=== PATIENT | female | born 1955 | race Caucasian/White ===

== ENCOUNTER 2016-08-19 11:51 | Emergency (ER) | payer MEDICARE, BC ==
[2016-08-19] MEDS ORDERED: Clindamycin Phosphate 900 MG in Sodium Chloride 0.9% 100 ML IV ONE (12:36)
--- NOTE | 2016-08-19 12:42 | EDM.PDOC ---
ED HPI Trauma - General Chief Complaint: Lower Extremity Injury/Pain Stated Complaint: LEFT LEG Time Seen by Provider: 08/19/16 12:25 Source: Reports: Patient History Limitations: Reports: Other (Old record not available) - History of Present Illness INITIAL COMMENTS - FREE TEXT/NARRATIVE: 60 yo female here with concern about worsening infection in her L foot. Is on cephalexin for a week now per a contract analyst in [place] for an infected great toe. Now redness extends to the ankle with shooting pains. Says she is not diabetic. Next appt with podiatry in 9 days. Also had recent cardiac surgery and L fem/ pop bypass also both in [place]. Saying with her daughter locally temporarily. Symptom Onset Date: 08/18/16 Occurred When: yesterday Occurred Where: home Method of Injury: other (No new injury. Had a toenail partially removed and a FB removed also at that time per podiatry about a week ago. ) Severity: moderate Pain/Injury Location: Reports: lower extremity, left Allergies/ADRs: Allergies No Known Allergies Allergy (Verified 08/19/16 12:13) Home Medications: Ambulatory Orders Aspirin 81 mg PO DAILY 08/19/16 [Confirmed 08/19/16] Carvedilol [Coreg] 12.5 mg PO BID 08/19/16 [Confirmed 08/19/16] Cephalexin 500 mg PO TID 08/19/16 [Confirmed 08/19/16] Citalopram [Celexa] 20 mg PO DAILY 08/19/16 [Confirmed 08/19/16] Clindamycin HCl 300 mg PO TID #15 capsule 08/19/16 Clopidogrel [Plavix] 75 mg PO DAILY 08/19/16 [Confirmed 08/19/16] Docusate Sodium [Colace] 100 mg PO BID 08/19/16 [Confirmed 08/19/16] Gabapentin [Neurontin] 300 mg PO TID 08/19/16 [Confirmed 08/19/16] Hydrochlorothiazide 12.5 mg PO DAILY 08/19/16 [Confirmed 08/19/16] Telmisartan [Micardis] 80 mg PO DAILY 08/19/16 [Confirmed 08/19/16] amLODIPine [Norvasc] 10 mg PO DAILY 08/19/16 [Confirmed 08/19/16] atorvaSTATin Calcium [Atorvastatin Calcium] 80 mg PO DAILY 08/19/16 [Confirmed 08/19/16] oxyCODONE 5 mg PO Q4H PRN 08/19/16 [Confirmed 08/19/16] Review of Systems - Review of Systems Review Of Systems: See Below Constitutional: Reports: no symptoms Respiratory: Reports: No Symptoms Cardiovascular: Reports: no symptoms GI/Abdominal: Reports: No symptoms Skin: Reports: erythema (L foot and great toe), wound, change in color Neurological: Reports: Other (Shooting pains now from ankle to foot on left.) Trauma Exam - Physical Exam Exam: See Below Exam Limited By: No limitations General Appearance: Reports: alert, WD/WN, no apparent distress, obese, other ( Looks older than her stated age.) Head: Reports: atraumatic, normocephalic Eyes: bilateral eye: normal inspection Ears: Reports: normal external exam, normal canal, hearing grossly normal Nose: Reports: normal inspection, normal mucousa, no blood Throat/Mouth: Reports: Normal inspection, Normal lips, Normal oropharynx, Normal voice, No airway compromise Neck: Reports: non-tender Respiratory Exam: Reports: no respiratory distress, lungs clear, normal breath sounds, no accessory muscle use Cardiovascular: Reports: regular rate, rhythm Extremities: Reports: other (No calf pain, negative Abbey's) Skin: Reports: Warm/dry, Other (Slight erythema of the left foot dorsally. No drainage. ) Course - Vital Signs Text/Narrative:: Clindamycin 900 mg IV, percocet 1 po Last Recorded V/S: Last Vital Signs Temp 36.5 C 08/19/16 12:08 Pulse 63 08/19/16 12:08 Resp 18 08/19/16 12:08 BP 173/59 H 08/19/16 12:08 Pulse Ox 100 08/19/16 12:08 - Orders/Labs/Meds Orders: Active Orders 24 hr Category Date Time Status CULTURE BLOOD [BC] Stat Lab 08/19/16 12:50 Received Acetaminophen/oxyCODONE [Percocet 325-5 MG] Med 08/19/16 13:23 Once 1 tab PO ONETIME ONE Sodium Chloride 0.9% [Normal Saline] 250 ml Med 08/19/16 13:00 Active IV ASDIRECTED Medication Orders Sodium Chloride (Normal Saline) 250 mls @ 100 mls/hr IV ASDIRECTED DOMI Last Admin: 08/19/16 13:17 Dose: 100 mls/hr Labs: Laboratory Tests 08/19/16 08/19/16 08/19/16 Range/Units 12:50 12:50 12:50 WBC 7.6 (4.5-12.0) X10-3/uL RBC 3.75 (3.23-5.20) x10(6)uL Hgb 11.4 L (11.5-15.5) g/dL Hct 33.1 (30.0-51.3) % MCV 88.1 (80-96) fL MCH 30.5 (27.7-33.6) pg MCHC 34.6 (32.2-35.4) g/dL RDW 13.2 (11.5-15.5) % Plt Count 238 (125-369) X10(3)uL Sodium 140 (135-145) mmol/L Potassium 4.1 (3.5-5.3) mmol/L Chloride 107 (100-110) mmol/L Carbon Dioxide 23 (23-29) mmol/L BUN 24 H (8-23) mg/dL Creatinine 1.0 (0.6-1.3) mg/dL Est Cr Clr Drug Dosing 53.83 mL/min Estimated GFR (MDRD) 57 L (>60) BUN/Creatinine Ratio 24.0 H (9-20) Glucose 101 (80-116) mg/dL Calcium 8.8 (8.6-10.2) mg/dL C-Reactive Protein 1.0 (0.0-1.0) mg/dL Meds: Medications Generic Name Dose Route Start Last Admin Trade Name Freq PRN Reason Stop Dose Admin Sodium Chloride 250 mls @ 100 mls/hr 08/19/16 13:00 08/19/16 13:17 Normal Saline IV 100 mls/hr ASDIRECTED DOMI Administration Discontinued Medications Generic Name Dose Route Start Last Admin Trade Name Freq PRN Reason Stop Dose Admin Clindamycin Phosphate 900 mg/ 106 mls @ 200 mls/hr 08/19/16 12:36 08/19/16 13 :17 Sodium Chloride IV 08/19/16 13:07 200 mls/hr ONETIME ONE Administration Departure - Departure Time of Disposition: 13:45 Disposition: Home, Self-Care 01 Condition: fair Clinical Impression: Left foot infection Prescriptions: Clindamycin HCl 300 mg PO TID #15 capsule Referrals: PCP,None [Primary Care Provider] - Forms: ED Department Discharge Care Plan Goals: Continue present meds. Add clindamycin every 8 hrs. F/U with your contract analyst for recheck cassy, call for an appt. Keep the left foot elevated above your heart. - My Orders Last 24 Hours: My Active Orders 08/19/16 12:50 CULTURE BLOOD [BC] Stat 08/19/16 13:00 Sodium Chloride 0.9% [Normal Saline] 250 ml IV ASDIRECTED 08/19/16 13:23 Acetaminophen/oxyCODONE [Percocet 325-5 MG] 1 tab PO ONETIME ONE - Assessment/Plan Last 24 Hours: My Active Orders 08/19/16 12:50 CULTURE BLOOD [BC] Stat 08/19/16 13:00 Sodium Chloride 0.9% [Normal Saline] 250 ml IV ASDIRECTED 08/19/16 13:23 Acetaminophen/oxyCODONE [Percocet 325-5 MG] 1 tab PO ONETIME ONE
[2016-08-19] MEDS ORDERED: Sodium Chloride 0.9% 250 ML IV SCH (13:00)
[2016-08-19] MEDS ORDERED: Acetaminophen/oxyCODONE 325-5 MG Tab PO ONE (13:23)
[2016-08-19 16:41] VITALS: BP 165/79
== END 2016-08-19 15:01 | disposition home or self-care (01) ==
LOC: FB.ED 11:51
DX: L08.9 Local infection of the skin and subcutaneous tissue, unspecified (principal); Z79.82 Long term (current) use of aspirin; Z79.899 Other long term (current) drug therapy
CPT/HCPCS: 36415; 80048; 85027; 86140; 87040; 96365; 99283; A9270; J7030; J7050; 99284; S0077

== ENCOUNTER 2019-10-13 12:10 | Emergency (ER) | payer MEDICARE, BC ==
[2019-10-13] MEDS ORDERED: Sodium Chloride 0.9% 10 ML Syringe FLUSH PRN (12:27)
[2019-10-13 12:31] VITALS: BP 137/74; PULSE 97
--- NOTE | 2019-10-13 12:50 | EDM.PDOC ---
ED HPI GENERAL MEDICAL PROBLEM - General Chief Complaint: Abdominal Pain Stated Complaint: WEAKNESS Time Seen by Provider: 10/13/19 12:36 Source of Information: Reports: Patient History Limitations: Reports: No Limitations - History of Present Illness INITIAL COMMENTS - FREE TEXT/NARRATIVE: Patient resides at [facility]. She presents to the ED today with generalized weakness since 0200 after being given Oxycodone, which is not a new medication. 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 Patient is s/p colectomy @[facility] @3 weeks ago due to a mass. She complains of intermittent LUQ abdominal pain and nausea x 1 week , she did have an episode of vomiting yesterday. PMHx includes CHF, CAD w/ stents, PVD, HTN, and Depression. Onset Date: 10/13/19 Onset Time: 02:00 - Related Data Allergies Allergy/AdvReac Type Severity Reaction Status Date / Time No Known Allergies Allergy Verified 10/13/19 12:52 Home Meds: Home Meds Aspirin 81 mg PO DAILY 08/19/16 [History] Citalopram [Celexa] 40 mg PO DAILY 08/19/16 [History] Clopidogrel [Plavix] 75 mg PO DAILY 08/19/16 [History] Gabapentin [Neurontin] 900 mg PO BEDTIME 08/19/16 [History] Telmisartan [Micardis] 80 mg PO DAILY 08/19/16 [History] oxyCODONE 10 mg PO Q4H PRN 08/19/16 [History] Acetaminophen [Pain Relief] 650 mg PO Q4H PRN 10/13/19 [History] Alum Hydrox/Mag Hydrox/Simeth [Maalox Advanced] 10 ml PO Q4H PRN 10/13/19 [ History] Cholecalciferol (Vitamin D3) [Vitamin D3] 1,000 units PO DAILY 10/13/19 [History ] Colchicine 0.6 mg PO DAILY 10/13/19 [History] Furosemide 40 mg PO DAILY 10/13/19 [History] Furosemide 80 mg PO DAILY 10/13/19 [History] Gabapentin [Neurontin] 300 mg PO DAILY 10/13/19 [History] Gabapentin [Neurontin] 600 mg PO DAILY 10/13/19 [History] Mirtazapine [Remeron] 15 mg PO BEDTIME 10/13/19 [History] Multivit-Min/FA/Lycopen/Lutein [Sentry Senior Tablet] 1 tab PO DAILY 10/13/19 [ History] NIFEdipine [Nifedipine ER] 90 mg PO DAILY 10/13/19 [History] Ondansetron [Zofran ODT] 4 mg PO Q6H PRN 10/13/19 [History] Potassium Chloride 20 meq PO BID 10/13/19 [History] Rosuvastatin [Crestor] 10 mg PO BEDTIME 10/13/19 [History] Sennosides/Docusate Sodium [Senna-Docusate Sodium Tablet] 2 tab PO BID PRN 10/12 [History] carvediloL [Coreg] 25 mg PO BID 10/13/19 [History] hydrALAZINE [Apresoline] 25 mg PO BID 10/13/19 [History] polyethylene glycoL 3350 [MiraLAX] 17 gm PO DAILY PRN 10/13/19 [History] Past Medical History Cardiovascular History: Reports: CAD, High Cholesterol, Hypertension, NC, Stents , Other (See Below) (PVD) Gastrointestinal History: Reports: None GAS TESTER History: Reports: Musculoskeletal History: Reports: Back Pain, Chronic Neurological History: Reports: Neuropathy, Peripheral Psychiatric History: Reports: Depression Endocrine/Metabolic History: Reports: Obesity/BMI 30+ Dermatologic History: Reports: Other (See Below) Other Dermatologic History: sore to L gt toe - Infectious Disease History Infectious Disease History: Reports: Chicken Pox - Past Surgical History Cardiovascular Surgical History: Reports: Coronary Artery Stent, Other (See Below) Female Surgical History: Reports: Section, Other (See Below) Musculoskeletal Surgical History: Reports: Other (See Below) Social & Family History - Family History Family Medical History: Noncontributory - Tobacco Use Smoking Status *Q: Never Smoker - Caffeine Use Caffeine Use: Reports: Coffee - Recreational Drug Use Recreational Drug Use: No ED ROS GENERAL - Review of Systems Review Of Systems: Comprehensive ROS is negative, except as noted in HPI. ED EXAM, GENERAL - Physical Exam Exam: See Below Exam Limited By: No Limitations General Appearance: Alert, WD/WN, No Apparent Distress Eye Exam: Bilateral Eye: EOMI, PERRL Nose: Normal Inspection Throat/Mouth: No Airway Compromise Head: Atraumatic, Normocephalic Neck: Full Range of Motion Respiratory/Chest: No Respiratory Distress, Decreased Breath Sounds Cardiovascular: Regular Rate, Rhythm, No Murmur GI/Abdominal: Soft, Tender (LUQ), Abnormal Bowel Sounds (hypoactive), Other ( Vertical incision CDI) Back Exam: Full Range of Motion Extremities: Pedal Edema Neurological: Alert, CN II-XII Intact, Normal Cognition, No Motor/Sensory Deficits, Other (GCS=15, NIHSS=0) Psychiatric: Normal Affect, Normal Mood Skin Exam: Warm, Dry, Intact EKG INTERPRETATION EKG Date: 10/13/19 Time: 12:15 Rhythm: NSR Rate (Beats/Min): 93 [place]: Normal P-Wave: Present QRS: RBBB ST-T: Normal Comparison: NA - No Prior EKG Course - Vital Signs Last Recorded V/S: Last Vital Signs Temp 36.7 C 10/13/19 12:25 Pulse 97 10/13/19 12:25 Resp 16 10/13/19 12:25 BP 137/74 10/13/19 12:25 Pulse Ox 93 L 10/13/19 12:25 - Orders/Labs/Meds Orders: Active Orders 24 hr Category Date Time Status EKG Documentation Completion [RC] ASDIRECTED Care 10/13/19 12:24 Active Abdomen Pelvis w Cont [CT] Stat Exams 10/13/19 13:34 Taken CXR [Chest 1V Frontal] [CR] Stat Exams 10/13/19 12:49 Taken CULTURE BLOOD [BC] Urgent Lab 10/13/19 12:55 Received CULTURE BLOOD [BC] Urgent Lab 10/13/19 13:00 Received Piperacillin/Tazobactam [Zosyn] 3.375 gm Med 10/13/19 15:17 Ordered Sodium Chloride 0.9% [Normal Saline] 50 ml IV .ONCE Sodium Chloride 0.9% @ 75 MLS/HR(1000ml) Med 10/13/19 15:45 Ordered Sodium Chloride 0.9% [Normal Saline] 1,000 ml IV ASDIRECTED Sodium Chloride 0.9% [Saline Flush] Med 10/13/19 12:27 Active 10 ml FLUSH ASDIRECTED PRN Blood Culture x2 Reflex Set [OM.PC] Urgent Oth 10/13/19 12:34 Ordered Saline Lock Insert [OM.PC] Routine Oth 10/13/19 12:27 Ordered EKG 12 Lead [EK] Stat Ther 10/13/19 12:24 Ordered Medication Orders Piperacillin Sod/Tazobactam (Sod 3.375 gm/ Sodium Chloride) 50 mls @ 100 mls/ hr IV .ONCE ONE Stop: 10/13/19 15:46 Last Admin: 10/13/19 15:35 Dose: 100 mls/hr Sodium Chloride (Saline Flush) 10 ml FLUSH ASDIRECTED PRN PRN Reason: Keep Vein Open Labs: Laboratory Tests 10/13/19 10/13/19 10/13/19 Range/Units 12:04 13:00 13:00 WBC 30.3 H* (4.5-12.0) X10-3/uL RBC 4.70 (3.23-5.20) x10(6)uL Hgb 13.5 (11.5-15.5) g/dL Hct 40.6 (30.0-51.3) % MCV 86.4 (80-96) fL MCH 28.6 (27.7-33.6) pg MCHC 33.1 (32.2-35.4) g/dL RDW 12.8 (11.5-15.5) % Plt Count 490 H (125-369) X10(3)uL MPV 8.6 (7.4-10.4) fL Add Manual Diff Yes Neutrophils % (Manual) 76 (46-82) % Band Neutrophils % 10 H (0-6) % Lymphocytes % (Manual) 10 L (13-37) % Monocytes % (Manual) 4 (4-12) % Toxic Granulation Moderate H (NOT SEEN) Macrocytosis Few PT (9.0-11.1) sec INR (1.00-1.24) APTT (24.4-33.2) SECONDS D-Dimer, Quantitative (0.0-0.59) mg/LFEU POC VBG pH 7.48 H (7.31-7.41) POC VBG pCO2 44.9 (41-51) mmHG POC VBG HCO3 33.7 H (23-28) mmol/L POC VBG Total CO2 35 H (24-29) mmol/L POC VBG Base Excess 10 H (-2-3) mmol/L Sodium (135-145) mmol/L Potassium (3.5-5.3) mmol/L Chloride (100-110) mmol/L Carbon Dioxide (21-32) mmol/L BUN (7-18) mg/dL Creatinine (0.55-1.02) mg/dL Est Cr Clr Drug Dosing Estimated GFR (MDRD) (>60) BUN/Creatinine Ratio (9-20) Glucose (80-116) mg/dL Lactic Acid (0.4-2.0) mmol/L Calcium (8.6-10.2) mg/dL Magnesium (1.8-2.5) mg/dL Total Bilirubin (0.1-1.3) mg/dL AST (5-25) IU/L ALT (12-36) U/L Alkaline Phosphatase (56-112) IU/L Troponin I (4.0-60.3) pg/mL NT-Pro-B Natriuret Pep (<=125) pg/mL Total Protein (6.0-8.0) g/dL Albumin (3.2-4.6) g/dL Globulin g/dL Albumin/Globulin Ratio Lipase (73-393) U/L Urine Color Yellow (YELLOW) Urine Appearance Clear (CLEAR) Urine pH 6.0 (5.0-6.5) Ur Specific [place] 1.015 (1.010-1.025) Urine Protein Trace (NEGATIVE) mg/dL Urine Glucose (UA) Normal (NORMAL) mg/dL Urine Ketones Negative (NEGATIVE) mg/dL Urine Occult Blood Negative (NEGATIVE) Urine Nitrite Negative (NEGATIVE) Urine Bilirubin Negative (NEGATIVE) Urine Urobilinogen Normal (NEGATIVE) mg/dL Ur Leukocyte Esterase Negative (NEGATIVE) Urine RBC 0-5 (0-5) Urine WBC 0-5 (0-5) Ur Squamous Epith Cells Rare (NS,R,O) Urine Bacteria Rare H (NS) 10/13/19 10/13/19 10/13/19 Range/Units 13:00 13:00 13:00 WBC (4.5-12.0) X10-3/uL RBC (3.23-5.20) x10(6)uL Hgb (11.5-15.5) g/dL Hct (30.0-51.3) % MCV (80-96) fL MCH (27.7-33.6) pg MCHC (32.2-35.4) g/dL RDW (11.5-15.5) % Plt Count (125-369) X10(3)uL MPV (7.4-10.4) fL Add Manual Diff Neutrophils % (Manual) (46-82) % Band Neutrophils % (0-6) % Lymphocytes % (Manual) (13-37) % Monocytes % (Manual) (4-12) % Toxic Granulation (NOT SEEN) Macrocytosis PT 11.4 H (9.0-11.1) sec INR 1.06 (1.00-1.24) APTT 25.9 (24.4-33.2) SECONDS D-Dimer, Quantitative 11.08 H (0.0-0.59) mg/LFEU POC VBG pH (7.31-7.41) POC VBG pCO2 (41-51) mmHG POC VBG HCO3 (23-28) mmol/L POC VBG Total CO2 (24-29) mmol/L POC VBG Base Excess (-2-3) mmol/L Sodium 134 L (135-145) mmol/L Potassium 4.1 D (3.5-5.3) mmol/L Chloride 95 L (100-110) mmol/L Carbon Dioxide 34 H (21-32) mmol/L BUN 22 H D (7-18) mg/dL Creatinine 1.2 H (0.55-1.02) mg/dL Est Cr Clr Drug Dosing TNP Estimated GFR (MDRD) 45 L (>60) BUN/Creatinine Ratio 18.3 (9-20) Glucose 202 H (80-116) mg/dL Lactic Acid 1.2 (0.4-2.0) mmol/L Calcium 8.7 (8.6-10.2) mg/dL Magnesium 1.8 (1.8-2.5) mg/dL Total Bilirubin 0.6 (0.1-1.3) mg/dL AST 23 D (5-25) IU/L ALT 20 D (12-36) U/L Alkaline Phosphatase 123 H (56-112) IU/L Troponin I (4.0-60.3) pg/mL NT-Pro-B Natriuret Pep (<=125) pg/mL Total Protein 7.5 (6.0-8.0) g/dL Albumin 2.1 L (3.2-4.6) g/dL Globulin 5.4 g/dL Albumin/Globulin Ratio 0.4 Lipase (73-393) U/L Urine Color (YELLOW) Urine Appearance (CLEAR) Urine pH (5.0-6.5) Ur Specific [place] (1.010-1.025) Urine Protein (NEGATIVE) mg/dL Urine Glucose (UA) (NORMAL) mg/dL Urine Ketones (NEGATIVE) mg/dL Urine Occult Blood (NEGATIVE) Urine Nitrite (NEGATIVE) Urine Bilirubin (NEGATIVE) Urine Urobilinogen (NEGATIVE) mg/dL Ur Leukocyte Esterase (NEGATIVE) Urine RBC (0-5) Urine WBC (0-5) Ur Squamous Epith Cells (NS,R,O) Urine Bacteria (NS) 10/13/19 Range/Units 13:00 WBC (4.5-12.0) X10-3/uL RBC (3.23-5.20) x10(6)uL Hgb (11.5-15.5) g/dL Hct (30.0-51.3) % MCV (80-96) fL MCH (27.7-33.6) pg MCHC (32.2-35.4) g/dL RDW (11.5-15.5) % Plt Count (125-369) X10(3)uL MPV (7.4-10.4) fL Add Manual Diff Neutrophils % (Manual) (46-82) % Band Neutrophils % (0-6) % Lymphocytes % (Manual) (13-37) % Monocytes % (Manual) (4-12) % Toxic Granulation (NOT SEEN) Macrocytosis PT (9.0-11.1) sec INR (1.00-1.24) APTT (24.4-33.2) SECONDS D-Dimer, Quantitative (0.0-0.59) mg/LFEU POC VBG pH (7.31-7.41) POC VBG pCO2 (41-51) mmHG POC VBG HCO3 (23-28) mmol/L POC VBG Total CO2 (24-29) mmol/L POC VBG Base Excess (-2-3) mmol/L Sodium (135-145) mmol/L Potassium (3.5-5.3) mmol/L Chloride (100-110) mmol/L Carbon Dioxide (21-32) mmol/L BUN (7-18) mg/dL Creatinine (0.55-1.02) mg/dL Est Cr Clr Drug Dosing Estimated GFR (MDRD) (>60) BUN/Creatinine Ratio (9-20) Glucose (80-116) mg/dL Lactic Acid (0.4-2.0) mmol/L Calcium (8.6-10.2) mg/dL Magnesium (1.8-2.5) mg/dL Total Bilirubin (0.1-1.3) mg/dL AST (5-25) IU/L ALT (12-36) U/L Alkaline Phosphatase (56-112) IU/L Troponin I 7.8 (4.0-60.3) pg/mL NT-Pro-B Natriuret Pep 2566 H* (<=125) pg/mL Total Protein (6.0-8.0) g/dL Albumin (3.2-4.6) g/dL Globulin g/dL Albumin/Globulin Ratio Lipase 92 (73-393) U/L Urine Color (YELLOW) Urine Appearance (CLEAR) Urine pH (5.0-6.5) Ur Specific [place] (1.010-1.025) Urine Protein (NEGATIVE) mg/dL Urine Glucose (UA) (NORMAL) mg/dL Urine Ketones (NEGATIVE) mg/dL Urine Occult Blood (NEGATIVE) Urine Nitrite (NEGATIVE) Urine Bilirubin (NEGATIVE) Urine Urobilinogen (NEGATIVE) mg/dL Ur Leukocyte Esterase (NEGATIVE) Urine RBC (0-5) Urine WBC (0-5) Ur Squamous Epith Cells (NS,R,O) Urine Bacteria (NS) Meds: Medications Generic Name Dose Route Start Last Admin Trade Name Freq PRN Reason Stop Dose Admin Piperacillin Sod/Tazobactam 50 mls @ 100 mls/hr 10/13/19 15:17 10/13/19 15:35 Sod 3.375 gm/ Sodium Chloride IV 10/13/19 15:46 100 mls/hr .ONCE ONE Administration Sodium Chloride 10 ml 10/13/19 12:27 Saline Flush FLUSH ASDIRECTED PRN Keep Vein Open Discontinued Medications Generic Name Dose Route Start Last Admin Trade Name Freq PRN Reason Stop Dose Admin Sodium Chloride 500 mls @ 500 mls/hr 10/13/19 12:52 10/13/19 15:34 Normal Saline IV 10/13/19 13:51 500 mls/hr .BOLUS ONE Administration Iopamidol 100 ml 10/13/19 14:15 10/13/19 14:23 Isovue-370 (76%) IV 10/13/19 14:16 100 ml . DIRECTED ONE Administration - Radiology Interpretation Free Text/Narrative:: Patient Name: TRIXIE EARL Date of : 1955 Procedure: CT ABDOMEN PELVIS WITH CONTRAST Date of Service: 10/13/2019 EXAM: CT ABDOMEN PELVIS WITH CONTRAST INDICATION:ICD-10 R10.9 Abdominal pain ICD-10 D72.829 Leukocytosis abdominal pain, leukocytosis TECHNIQUE: CT imaging was performed through the abdomen and pelvis following IV contrast. COMPARISON(S): 10/02/2019 FINDINGS: Lung bases demonstrate subsegmental atelectasis at the left base. Clustered micronodules at the paramedian right middle lobe and inferior lingula with imaging characteristics typical of inflammatory pneumonitis. There is evidence of peripherally located branching air lucencies within the liver compatible with portal venous gas. There is perihepatic and perisplenic ascites which is new over the interim. Gallbladder, biliary system and pancreas unremarkable. Spleen is normal. Adrenal glands normal. Punctate nonobstructing stone upper pole left kidney. Atrophic right kidney, likely chronic. No hydronephrosis. Bladder unremarkable aside from air nondependently. New postoperative change of right hemicolectomy. Pancreas worrisome for pneumatosis involving segments of small bowel in the left abdomen. There is a focus of air within the distal SMV. Small bowel wall thickening possible in the left abdomen. No free air. No destructive osseous lesion or acute fracture. IMPRESSION: 1. Since C5 09/18/2019 examination, there has been a right hemicolectomy. There is new portal venous gas within the periphery of the liver and possible small bowel pneumatosis in the left abdomen. Pneumatosis can indicate small bowel ischemia but can also be seen with benign etiologies. Correlate with lactic acid and clinical impression. A small focus of air is noted within the distal SMV. 2. Clustered nodules at the inferior lingula and paramedian right middle lobe with imaging characteristics typical of infectious/inflammatory pneumonitis. 3. Mild perihepatic and perisplenic ascites, also seen at the left abdomen. 4. Sigmoid diverticulosis. Findings discussed with EBTTINA BERNABE on 10/13/2019 2:59 PM CDT Finalized by: Hugo Peralta DO on 10/13/2019 3:03 PM CDT EXAM: XRAY CHEST 1 VIEW INDICATION:ICD-10 R79.81 Low O2 saturation COMPARISON(S): 10/02/2019 FINDINGS/IMPRESSION: Aortic calcification. Chest is otherwise negative. Finalized by: Evelyne Sheppard MD on 10/13/2019 1:02 PM CDT - Re-Assessments/Exams Free Text/Narrative Re-Assessment/Exam: 10/13/19 15:36 20G IV started in left hand by ESTATE CONSERVATOR after multiple unsuccessful attempts. Dr. Dent ([facility] Surgeon) accepts patient for transfer, advises against empiric anticoagulation at this time. Departure - Departure Time of Disposition: 15:38 Disposition: DC/Tfer to [facility] 02 Condition: Fair Clinical Impression: Pneumatosis intestinalis, D-dimer, elevated Pneumonia Qualifiers: Pneumonia type: due to unspecified organism Laterality: bilateral Lung location : lower lobe of lung Qualified Code(s): J18.9 - Pneumonia, unspecified organism - Discharge Information *PRESCRIPTION DRUG MONITORING PROGRAM REVIEWED*: No *COPY OF PRESCRIPTION DRUG MONITORING REPORT IN PATIENT CHER: Not Applicable Referrals: Jann Benson MD [Primary Care Provider] - Forms: ED Department Discharge Sepsis Event Note - Evaluation Sepsis Screening Result: Possible Sepsis Risk - Focused Exam Vital Signs: Vital Signs Temp Pulse Resp BP Pulse Ox 10/13/19 12:25 36.7 C 97 16 137/74 93 L Date Exam was Performed: 10/13/19 Time Exam was Performed: 15:36 - My Orders Last 24 Hours: My Active Orders 10/13/19 12:24 EKG Documentation Completion [RC] ASDIRECTED EKG 12 Lead [EK] Stat 10/13/19 12:27 Sodium Chloride 0.9% [Saline Flush] 10 ml FLUSH ASDIRECTED PRN Saline Lock Insert [OM.PC] Routine 10/13/19 12:34 Blood Culture x2 Reflex Set [OM.PC] Urgent 10/13/19 12:49 CXR [Chest 1V Frontal] [CR] Stat 10/13/19 12:55 CULTURE BLOOD [BC] Urgent 10/13/19 13:00 CULTURE BLOOD [BC] Urgent 10/13/19 13:34 Abdomen Pelvis w Cont [CT] Stat 10/13/19 15:17 Piperacillin/Tazobactam [Zosyn] 3.375 gm Sodium Chloride 0.9% [Normal Saline] 50 ml IV .ONCE 10/13/19 15:45 Sodium Chloride 0.9% @ 75 MLS/HR(1000ml) Sodium Chloride 0.9% [Normal Saline] 1 ,000 ml IV ASDIRECTED - Assessment/Plan Last 24 Hours: My Active Orders 10/13/19 12:24 EKG Documentation Completion [RC] ASDIRECTED EKG 12 Lead [EK] Stat 10/13/19 12:27 Sodium Chloride 0.9% [Saline Flush] 10 ml FLUSH ASDIRECTED PRN Saline Lock Insert [OM.PC] Routine 10/13/19 12:34 Blood Culture x2 Reflex Set [OM.PC] Urgent 10/13/19 12:49 CXR [Chest 1V Frontal] [CR] Stat 10/13/19 12:55 CULTURE BLOOD [BC] Urgent 10/13/19 13:00 CULTURE BLOOD [BC] Urgent 10/13/19 13:34 Abdomen Pelvis w Cont [CT] Stat 10/13/19 15:17 Piperacillin/Tazobactam [Zosyn] 3.375 gm Sodium Chloride 0.9% [Normal Saline] 50 ml IV .ONCE 10/13/19 15:45 Sodium Chloride 0.9% @ 75 MLS/HR(1000ml) Sodium Chloride 0.9% [Normal Saline] 1 ,000 ml IV ASDIRECTED
[2019-10-13] MEDS ORDERED: Sodium Chloride 0.9% 500 ML IV ONE (12:52)
[2019-10-13] MEDS ORDERED: Iopamidol 755 Mg/ML 100 ML Bottle IV ONE (14:15)
--- NOTE | 2019-10-13 15:02 | PCM.SN.2 ---
- Free Text/Narrative Note: Was called to ER to start an IV on a patient who they have had multiple attempts to start an IV and attempts to draw blood. IV prep to left hand and attempted IV start and unable to thread IV, was able to draw 5 cc's of blood and gave to LAb. Multiple attempts to start an IV by myself and by Abilio Parson CRNA. I did eventually start an IV in left hand using a 20 jelco, IV secured and flushed with 10 cc's of saline.Patient tolerated this well and report was given to the ER nurse.
[2019-10-13] MEDS ORDERED: Piperacillin/Tazobactam 3.375 GM in Sodium Chloride 0.9% 50 ML IV ONE (15:17)
[2019-10-13] MEDS ORDERED: Sodium Chloride 0.9% 1,000 ML IV SCH (15:45)
[2019-10-13] MEDS ORDERED: HYDROmorphone 2 MG/ML SDV IVPUSH ONE (16:28)
== END 2019-10-13 17:20 ==
LOC: FB.ED 12:10
DX: J18.9 Pneumonia, unspecified organism (principal); K63.89 Other specified diseases of intestine; R79.1 Abnormal coagulation profile
CPT/HCPCS: 36410; 36415; 71045; 74177; 80053; 81001; 82803; 83605; 83690; 83735; 83880; 84484; 85025; 85379; 85610; 85730; 87040; 93005; 96361; 96374; 96375; 99284; 99285; J1170; J2543; J7040; J7050; Q9967